=== PATIENT | female | born 1990 | race Caucasian/White ===

== ENCOUNTER 2022-03-30 18:07 | Emergency (ER) | payer MEDICAID, OTHER ==
[2022-03-30 19:34] LABS: Bilirubin Neg (Negative); Blood, Urine Negative (Negative); Clarity Clear (Clear); Glucose, Urine (Dipstick) Normal (Negative); Ketone, Urine Negative (Negative); Leukocyte Negative (Negative); Nitrite Negative (Negative); Protein, Urine (Dipstick) Negative (Neg-Trace); Urobilinogen Normal mg/dL (Less than 2)
== END 2022-03-30 21:30 | disposition home or self-care (01) ==
LOC: CSHERS 18:07
DX: O42.912 Preterm premature rupture of membranes, unspecified as to length of time between rupture and onset of labor, second trimester (principal); O99.332 Smoking (tobacco) complicating pregnancy, second trimester; F17.210 Nicotine dependence, cigarettes, uncomplicated; Z3A.14 14 weeks gestation of pregnancy
CPT/HCPCS: 36415; 76856; 81003; 84702

== ENCOUNTER 2022-08-11 17:29 | Day surgery (SDC) | payer OTHER ==
[2022-08-11 18:09] VITALS: BMI 37.3
== END 2022-08-11 18:40 | disposition home or self-care (01) ==
LOC: CSHLD/OP 17:29
PROVIDERS: ATTEND Family Medicine
DX: O30.003 Twin pregnancy, unspecified number of placenta and unspecified number of amniotic sacs, third trimester (principal); Z3A.34 34 weeks gestation of pregnancy; O26.893 Other specified pregnancy related conditions, third trimester; R10.2 Pelvic and perineal pain
CPT/HCPCS: 59025; 76815; 76819; 99282

== ENCOUNTER 2022-08-23 16:12 | Inpatient (IN) | payer OTHER ==
[2022-08-23 16:38] VITALS: BMI 37.7
[2022-08-23] MEDS ORDERED: hydrALAZINE 20 MG/ML VIAL SLOW IVP PRN (18:27)
[2022-08-23] MEDS ORDERED: Ondansetron PF 4 MG/2 ML Vial IVP PRN (18:27)
[2022-08-23] MEDS ORDERED: Promethazine HCl 25 MG/ML VIAL IM PRN (18:27)
[2022-08-23] MEDS: Betamet Acet/Betamet Na Ph 30 MG/5 ML VIAL IM SCH (19:28)
[2022-08-23 22:05] LABS: Fetal Membranes Rupture No Membranes Rupture (No Rupture)
[2022-08-24] MEDS: Acetaminophen 500 MG TAB PO PRN ×2 (14:05→23:12)
[2022-08-24] MEDS ORDERED: Lactated Ringer's 1,000 ML IV SCH (16:30)
[2022-08-24] MEDS: Metoclopramide HCl 10 MG/2 ML VIAL IVP SCH (17:58)
[2022-08-24] MEDS: Betamet Acet/Betamet Na Ph 30 MG/5 ML VIAL IM SCH (17:58)
[2022-08-24] MEDS: Ondansetron PF 4 MG/2 ML Vial IVP SCH (17:58)
[2022-08-24] MEDS: Docusate 100 MG CAP PO PRN (23:12)
[2022-08-25] MEDS: Metoclopramide HCl 10 MG/2 ML VIAL IVP SCH (00:41)
[2022-08-25] MEDS: Ondansetron PF 4 MG/2 ML Vial IVP SCH (00:41)
[2022-08-25] MEDS: Lactated Ringer's 1,000 ML IV SCH (00:42)
[2022-08-26] MEDS: Lactated Ringer's 1,000 ML IV SCH ×4 (06:11→20:41)
[2022-08-26] MEDS: Metoclopramide HCl 10 MG/2 ML VIAL IVP SCH (06:13)
[2022-08-26] MEDS: Ondansetron PF 4 MG/2 ML Vial IVP SCH (06:13)
[2022-08-27] MEDS: Lactated Ringer's 1,000 ML IV SCH ×2 (14:10→18:09)
[2022-08-28] MEDS: Lactated Ringer's 1,000 ML IV SCH ×2 (01:16→18:59)
[2022-08-28] MEDS: Calcium Carbonate 500 MG ChewTAB PO PRN (01:24)
[2022-08-29] MEDS: Calcium Carbonate 500 MG ChewTAB PO PRN ×2 (00:45→10:03)
[2022-08-29] MEDS: Docusate 100 MG CAP PO PRN ×2 (10:03→22:15)
[2022-08-29] MEDS: Lactated Ringer's 1,000 ML IV SCH (10:04)
[2022-08-29 10:40] LABS: Hemoglobin 10.4 g/dL (12.0-15.5); Mean Corpuscular HGB CONC 33.8 g/dL (32.0-36.0); Mean Corpuscular Hemoglobin 28.2 pg (27.0-33.0); Mean Corpuscular Volume 83.5 fl (81.6-98.3); Mean Platelet Volume 11.6 fl (7.4-10.4); Platelet Count 178 10x3/uL (150-450); RBC Distribution Width 14.1 % (11.5-14.5); Red Blood Cell (RBC) Count 3.69 10x6/uL (3.90-5.03); White Blood Cell (WBC) Count 6.5 10x3/uL (3.5-10.5)
[2022-08-29 11:11] LABS: Syphilis Antibody Nonreactive (Nonreactive); Syphilis Antibody Index 0.02 S/CO (<1.00 Non-Reactive)
[2022-08-29 11:12] LABS: HBSAg Index 0.19 S/CO (0-0.99); Hep B Surf Ag Non-Reactive S/CO (NonReactive)
[2022-08-29] MEDS: Acetaminophen 500 MG TAB PO PRN (22:14)
[2022-08-30] MEDS: Lactated Ringer's 1,000 ML IV SCH ×3 (07:49→23:12)
[2022-08-30] MEDS ORDERED: Famotidine/PF 20 mg/2ml Vial SLOW IVP SCH (14:00)
[2022-08-30] MEDS ORDERED: ePHEDrine Sulfate 50 MG/10 ML VIAL ONE (18:25)
[2022-08-30] MEDS ORDERED: Fentanyl 100 MCG/2 ML VIAL ONE (18:25)
[2022-08-30] MEDS ORDERED: Morphine PF 10 MG/10 ML VIAL ONE (18:25)
[2022-08-30] MEDS ORDERED: Ondansetron PF 4 MG/2 ML Vial ONE (18:38)
[2022-08-30] MEDS ORDERED: CEFAZOLIN 2 GM VIAL ONE (18:39)
[2022-08-30] MEDS ORDERED: Famotidine/PF 20 mg/2ml Vial SLOW IVP PRN (18:52)
[2022-08-30] MEDS ORDERED: Bicitra 30 ML UDCUP PO PRN (18:52)
[2022-08-30] MEDS ORDERED: CEFAZOLIN 2 GM in Sodium Chloride 0.9% 100 ML IVPB SCH (19:00)
[2022-08-30] MEDS ORDERED: Oxytocin 10 UNITS/ML VIAL ONE (19:58)
[2022-08-30] MEDS ORDERED: Promethazine HCl 25 MG SUPP PR PRN (20:17)
[2022-08-30] MEDS ORDERED: Meperidine HCl/PF 25 MG/ML VIAL SLOW IVP PRN (20:17)
[2022-08-30] MEDS ORDERED: Ondansetron HCl/PF 4 MG/2 ML Vial IVP PRN (20:17)
[2022-08-30] MEDS ORDERED: Moisturizing Cream (Eucerin) 113 GM JAR TOP PRN (20:17)
[2022-08-30] MEDS ORDERED: Naloxone HCl 0.4 mg/ml Vial IV PRN (20:17)
[2022-08-30] MEDS ORDERED: diphenhydrAMINE 50 MG/ML VIAL IVP PRN (20:17)
[2022-08-30] MEDS ORDERED: Promethazine HCl 25 MG/ML VIAL IM PRN ×2 (20:17→22:59)
[2022-08-30] MEDS ORDERED: Fentanyl 100 MCG/2 ML VIAL SLOW IVP PRN (20:17)
[2022-08-30] MEDS ORDERED: Naloxone HCl 0.4 mg/ml Vial IVP PRN ×2 (20:17)
[2022-08-30] MEDS ORDERED: HYDROmorphone 2 MG/ML VIAL SLOW IVP PRN (20:17)
[2022-08-30] MEDS ORDERED: Ondansetron PF 4 MG/2 ML Vial IVP PRN ×2 (20:17→22:59)
[2022-08-30] MEDS ORDERED: Ketorolac Tromethamine 30 MG/ML VIAL IVP PRN (20:17)
[2022-08-30] MEDS ORDERED: Ketorolac Tromethamine 30 MG/ML VIAL IVP SCH (20:30)
[2022-08-30] MEDS ORDERED: Communication Order-Pharmacy FS SCH (20:30)
[2022-08-30] MEDS ORDERED: Lanolin Ointment 7 GM TUBE TOP PRN (22:59)
[2022-08-30] MEDS ORDERED: hydrALAZINE 20 MG/ML VIAL SLOW IVP PRN (22:59)
[2022-08-30] MEDS ORDERED: Boostrix 0.5 ML (Tdap) VIAL (>/=7 yrs of age) IM ONE (22:59)
[2022-08-30] MEDS ORDERED: Bisacodyl 10 MG SUPP PR PRN (22:59)
[2022-08-30] MEDS ORDERED: diphenhydrAMINE 25 MG CAP PO PRN (22:59)
[2022-08-30] MEDS ORDERED: Docusate 100 MG CAP PO SCH (23:15)
[2022-08-30] MEDS ORDERED: Ferrous Sulfate 325 MG TAB PO SCH (23:15)
[2022-08-30] MEDS: Ketorolac Tromethamine 30 MG/ML VIAL IVP SCH (23:47)
[2022-08-31] MEDS ORDERED: Ketorolac Tromethamine 30 MG/ML VIAL IVP SCH (02:00)
[2022-08-31 03:56] LABS: Hemoglobin 11.2 g/dL (12.0-15.5); Mean Corpuscular HGB CONC 33.7 g/dL (32.0-36.0); Mean Platelet Volume 10.9 fl (7.4-10.4); Platelet Count 189 10x3/uL (150-450); RBC Distribution Width 14.3 % (11.5-14.5); White Blood Cell (WBC) Count 13.2 10x3/uL (3.5-10.5)
[2022-08-31] MEDS: Ketorolac Tromethamine 30 MG/ML VIAL IVP SCH ×2 (06:52→12:28)
[2022-08-31] MEDS: Prenatal Vitamin 1 TAB PO SCH (08:17)
[2022-08-31] MEDS: Docusate 100 MG CAP PO SCH ×2 (08:17→21:54)
[2022-08-31] MEDS ORDERED: Meperidine HCl/PF 25 MG/ML VIAL IM PRN (08:30)
[2022-08-31] MEDS ORDERED: HYDROcodone/Acetaminophen 5/325 mg Tablet PO PRN (08:30)
[2022-08-31] MEDS: Ferrous Sulfate 325 MG TAB PO SCH ×2 (09:16→21:58)
[2022-08-31] MEDS: HYDROcodone/Acetaminophen 5/325 mg Tablet PO PRN (20:10)
[2022-08-31] MEDS: Ibuprofen 800 MG TAB PO SCH (21:53)
[2022-08-31] MEDS: Simethicone Chewable 80 MG TAB PO PRN (21:54)
[2022-09-01] MEDS: HYDROcodone/Acetaminophen 5/325 mg Tablet PO PRN ×5 (00:42→23:35)
[2022-09-01] MEDS: Ibuprofen 800 MG TAB PO SCH ×3 (05:23→22:14)
[2022-09-01] MEDS: Simethicone Chewable 80 MG TAB PO PRN ×3 (05:23→22:14)
[2022-09-01] MEDS: Ferrous Sulfate 325 MG TAB PO SCH (07:14)
[2022-09-01] MEDS: Prenatal Vitamin 1 TAB PO SCH (08:46)
[2022-09-01] MEDS: Docusate 100 MG CAP PO SCH ×2 (08:47→22:14)
[2022-09-02] MEDS: Ferrous Sulfate 325 MG TAB PO SCH ×2 (01:35→08:10)
[2022-09-02] MEDS: Ibuprofen 800 MG TAB PO SCH ×2 (05:09→14:09)
[2022-09-02] MEDS: HYDROcodone/Acetaminophen 5/325 mg Tablet PO PRN ×2 (05:09→12:05)
[2022-09-02 08:00] VITALS: BP 121/68; TEMP 98.5
[2022-09-02] MEDS: Docusate 100 MG CAP PO SCH (08:51)
[2022-09-02] MEDS: Simethicone Chewable 80 MG TAB PO PRN (08:51)
[2022-09-02] MEDS: Prenatal Vitamin 1 TAB PO SCH (08:51)
== END 2022-09-02 16:55 | disposition home or self-care (01) | DRG 788 ==
LOC: CSHLD/OP 16:12 → CSHANTE 19:39 → CSHLD 08-30 18:46 → CSHPED 08-30 22:45
PROVIDERS: ADMIT Family Medicine; ATTEND Family Medicine
PROC: 10D00Z1 Extraction of Products of Conception, Low, Open Approach (ICD-10-PCS; principal; 2022-08-30)
DX: O41.03X0 Oligohydramnios, third trimester, not applicable or unspecified (principal); Z3A.36 36 weeks gestation of pregnancy; O34.211 Maternal care for low transverse scar from previous cesarean delivery; O30.043 Twin pregnancy, dichorionic/diamniotic, third trimester; Z37.2 Twins, both liveborn; O36.5931 Maternal care for other known or suspected poor fetal growth, third trimester, fetus 1; O36.5932 Maternal care for other known or suspected poor fetal growth, third trimester, fetus 2; F41.9 Anxiety disorder, unspecified; O99.344 Other mental disorders complicating childbirth
CPT/HCPCS: 51702; 59025; 76815; 76819; 84112; 85027; 86780; 86850; 86900; 86901; 87340; 88307; 99285; J0702; J1885; J2274; J2405; J2590; J2765; J3010; J7120; S0028